=== PATIENT | female | born 1990 | race American Indian/Alaskan Native ===

== ENCOUNTER 2017-04-21 14:25 | Emergency (ER) | payer OTHER ==
[2017-04-21] MEDS ORDERED: ULTRAM PO ONE (17:16)
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
[2017-04-21 18:20] VITALS: BP 108/66
== END 2017-04-21 18:19 | disposition home or self-care (01) ==
LOC: ED 14:25
DX: M54.5 Low back pain (principal); R51 Headache; R07.89 Other chest pain; V49.49XA Driver injured in collision with other motor vehicles in traffic accident, initial encounter; Y93.9 Activity, unspecified; Y99.9 Unspecified external cause status; Y92.410 Unspecified street and highway as the place of occurrence of the external cause
CPT/HCPCS: 93005; 93010; 99282

== ENCOUNTER 2017-05-21 14:41 | Emergency (ER) | payer OTHER ==
[2017-05-21 14:49] VITALS: BP 129/85
--- NOTE | 2017-05-21 15:26 | Emergency Department Report ---
ED Abdominal Pain HPI - General Chief Complaint: Urogenital-Female Stated Complaint: ABD PAIN Time Seen by Provider: 05/21/17 15:12 Source: patient Mode of arrival: Ambulatory Limitations: No Limitations - History of Present Illness Initial Comments: Patient here complaining of lower pelvic pain for 2 days. She denies any dysuria or blood in her urine. She says she has some urgency and difficulty holding her urine sometimes. She said the pain is in her left and mid pelvic area 6 out of 10 and shooting and sharp. Denies any fever or chills. Last menstrual period was 05/15/2017 and she said it ended yesterday. Patient denies any vaginal bleeding or discharge. She is sexually active and she is not concerned about STD. Denies any pain with sex.Denies any fever or chills or nausea vomiting or diarrhea. MD Complaint: abdominal pain Onset/Timin -: days(s) Location: suprapubic (pelvic area) Radiation: none Migration to: no migration Severity: moderate Severity scale (0 -10): 6 Quality: sharp, other (shooting) Consistency: intermittent Improves With: nothing Worsens With: nothing Context: other (unknown) Associated Symptoms: denies: nausea, vomiting, diarrhea, fever, chills, constipation, dysuria, hematemesis, hematochezia, melena, hematuria, anorexia, syncope Treatments Prior to Arrival: other (none) - Related Data LMP Date: 05/15/17 Previous Rx's Medication Instructions Recorded Last Taken Type Naproxen [Naprosyn] 500 mg PO BID PRN #10 tablet 05/21/17 Unknown Rx Nitrofurantoin [place]/M-Cryst 100 mg PO Q12HR #14 capsule 05/21/17 Unknown Rx [Macrobid CAP] Allergies Allergy/AdvReac Type Severity Reaction Status Date / Time No Known Allergies Allergy Verified 05/21/17 14:43 ED Review of Systems ROS: Stated complaint: ABD PAIN Other details as noted in HPI Comment: All other systems reviewed and negative Constitutional: denies: chills, fever ENT: denies: throat pain Respiratory: no symptoms reported Cardiovascular: denies: chest pain, palpitations, edema, syncope Gastrointestinal: denies: abdominal pain, nausea, vomiting, diarrhea, constipation, hematemesis, melena, hematochezia Genitourinary: urgency, frequency. denies: dysuria, hematuria, discharge, abnormal menses, dyspareunia Musculoskeletal: denies: back pain, joint swelling, arthralgia, myalgia Skin: denies: rash Neurological: denies: headache, weakness, numbness, paresthesias, confusion, abnormal gait, vertigo ED Past Medical Hx - Past Medical History Previous Medical History?: No - Surgical History Past Surgical History?: Yes Hx Breast Surgery: Yes (BREAST AUGMENTATION) - Family History Family history: hypertension - Social History Smoking Status: Never Smoker Substance Use Type: Alcohol - Medications Home Medications: Home Medications Medication Instructions Recorded Confirmed Last Taken Type Naproxen [Naprosyn] 500 mg PO BID PRN #10 tablet 05/21/17 Unknown Rx Nitrofurantoin [place]/M-Cryst 100 mg PO Q12HR #14 capsule 05/21/17 Unknown Rx [Macrobid CAP] ED Physical Exam - General Limitations: No Limitations General appearance: alert, in no apparent distress - Head Head exam: Present: atraumatic, normocephalic, normal inspection - Eye Eye exam: Present: normal appearance, PERRL, EOMI. Absent: nystagmus, periorbital swelling, periorbital tenderness Pupils: Present: normal accommodation - ENT ENT exam: Present: normal exam, normal orophraynx, mucous membranes moist, TM's normal bilaterally, normal external ear exam - Neck Neck exam: Present: normal inspection, full ROM. Absent: tenderness, meningismus, lymphadenopathy - Respiratory Respiratory exam: Present: normal lung sounds bilaterally. Absent: respiratory distress, chest wall tenderness - Cardiovascular Cardiovascular Exam: Present: regular rate, normal rhythm - GI/Abdominal GI/Abdominal exam: Present: soft, normal bowel sounds. Absent: distended, tenderness, guarding, rebound, rigid - Extremities Exam Extremities exam: Present: normal inspection, full ROM, normal capillary refill. Absent: tenderness, pedal edema, joint swelling, calf tenderness - Back Exam Back exam: Present: normal inspection, full ROM. Absent: tenderness, CVA tenderness (R), CVA tenderness (L), muscle spasm, paraspinal tenderness, vertebral tenderness, rash noted - Neurological Exam Neurological exam: Present: alert, oriented X3, normal gait, reflexes normal. Absent: motor sensory deficit - Psychiatric Psychiatric exam: Present: normal affect, normal mood - Skin Skin exam: Present: warm, dry, intact, normal color. Absent: rash ED Course Vital Signs 05/21/17 14:45 Temperature 98.0 F Pulse Rate 87 Respiratory 16 Rate Blood Pressure 129/85 O2 Sat by Pulse 100 Oximetry - Reevaluation(s) Reevaluation #1: 05/21/17 15:37 Patient stable and awaiting the lab results and did not want any medication for pain. ED Medical Decision Making - Lab Data Lab Results 05/21/17 05/21/17 05/21/17 Range/Units 14:59 15:03 15:03 WBC 7.1 (4.5-11.0) K/mm3 RBC 4.38 (3.65-5.03) M/mm3 Hgb 10.9 (10.1-14.3) gm/dl Hct 34.5 (30.3-42.9) % MCV 79 (79-97) fl MCH 25 L (28-32) pg MCHC 32 (30-34) % RDW 17.0 H (13.2-15.2) % Plt Count 249 (140-440) K/mm3 Lymph % (Auto) 19.4 (13.4-35.0) % [place] % (Auto) 9.1 H (0.0-7.3) % Eos % (Auto) 0.5 (0.0-4.3) % Baso % (Auto) 0.5 (0.0-1.8) % Lymph # 1.4 (1.2-5.4) K/mm3 [place] # 0.6 (0.0-0.8) K/mm3 Eos # 0.0 (0.0-0.4) K/mm3 Baso # 0.0 (0.0-0.1) K/mm3 Seg Neutrophils % 70.5 H (40.0-70.0) % Seg Neutrophils # 5.0 (1.8-7.7) K/mm3 Sodium (137-145) mmol/L Potassium (3.6-5.0) mmol/L Chloride (98-107) mmol/L Carbon Dioxide (22-30) mmol/L Anion Gap mmol/L BUN (7-17) mg/dL Creatinine (0.7-1.2) mg/dL Estimated GFR ml/min BUN/Creatinine Ratio % Glucose (65-100) mg/dL Calcium (8.4-10.2) mg/dL HCG, Qual Negative (Negative) Urine Color Yellow (Yellow) Urine Turbidity Cloudy (Clear) Urine pH 6.0 (5.0-7.0) Ur Specific [place] 1.016 (1.003-1.030) Urine Protein 100 mg/dl (Negative) mg/dL Urine Glucose (UA) Neg (Negative) mg/dL Urine Ketones Neg (Negative) mg/dL Urine Blood Lg (Negative) Urine Nitrite Neg (Negative) Urine Bilirubin Neg (Negative) Urine Urobilinogen < 2.0 (<2.0) mg/dL Ur Leukocyte Esterase Lg (Negative) Urine WBC (Auto) > 182.0 H (0.0-6.0) /HPF Urine RBC (Auto) > 182.0 (0.0-6.0) /HPF Urine Bacteria (Auto) 2+ (Negative) /HPF Urine Mucus 3+ /HPF 05/21/17 Range/Units 15:03 WBC (4.5-11.0) K/mm3 RBC (3.65-5.03) M/mm3 Hgb (10.1-14.3) gm/dl Hct (30.3-42.9) % MCV (79-97) fl MCH (28-32) pg MCHC (30-34) % RDW (13.2-15.2) % Plt Count (140-440) K/mm3 Lymph % (Auto) (13.4-35.0) % [place] % (Auto) (0.0-7.3) % Eos % (Auto) (0.0-4.3) % Baso % (Auto) (0.0-1.8) % Lymph # (1.2-5.4) K/mm3 [place] # (0.0-0.8) K/mm3 Eos # (0.0-0.4) K/mm3 Baso # (0.0-0.1) K/mm3 Seg Neutrophils % (40.0-70.0) % Seg Neutrophils # (1.8-7.7) K/mm3 Sodium 141 (137-145) mmol/L Potassium 4.0 (3.6-5.0) mmol/L Chloride 104.2 (98-107) mmol/L Carbon Dioxide 25 (22-30) mmol/L Anion Gap 16 mmol/L BUN 8 (7-17) mg/dL Creatinine 0.8 (0.7-1.2) mg/dL Estimated GFR > 60 ml/min BUN/Creatinine Ratio 10.00 % Glucose 79 (65-100) mg/dL Calcium 9.3 (8.4-10.2) mg/dL HCG, Qual (Negative) Urine Color (Yellow) Urine Turbidity (Clear) Urine pH (5.0-7.0) Ur Specific [place] (1.003-1.030) Urine Protein (Negative) mg/dL Urine Glucose (UA) (Negative) mg/dL Urine Ketones (Negative) mg/dL Urine Blood (Negative) Urine Nitrite (Negative) Urine Bilirubin (Negative) Urine Urobilinogen (<2.0) mg/dL Ur Leukocyte Esterase (Negative) Urine WBC (Auto) (0.0-6.0) /HPF Urine RBC (Auto) (0.0-6.0) /HPF Urine Bacteria (Auto) (Negative) /HPF Urine Mucus /HPF Urine culture pending PT has large amount of blood in her urine because she is finishing her menses today - Medical Decision Making ED course: Patient here complaining of urinary urgency and difficult to hold her urine. She has no concern for STD, no nausea vomiting or diarrhea. No fever. Denies urinary burning. Urinalysis shows she has urinary tract infection with large amount of blood which patient is finishing up on her menses today. test is negative. Urine culture sent and pending. Urine result explained to patient in detail. She is able tolerate oral liquids without nausea or vomiting. Patient received Rocephin 1 g IM and emergency room for urinary tract infection. I discussed diagnosis and treatment plan with her and she voiced understanding. Discharge home with prescription for Macrobid and to follow-up with her primary care physician in 3-5 days. Critical care attestation.: If time is entered above; I have spent that time in minutes in the direct care of this critically ill patient, excluding procedure time. ED Disposition Clinical Impression: Acute cystitis with hematuria, Pelvic pain Disposition: TO HOME OR SELFCARE Is pt being admited?: No Does the pt Need Aspirin: No Condition: Stable Instructions: Urinary Tract Infection in Women (ED), Abdominal Pain (ED) Additional Instructions: Please increase her fluid intake to 2-3 L of liquid per day. Do not hold urine when he gets hurts to urinate Take antibiotic as prescribed. If you develop, fever, nausea or vomiting and increase in pelvic pain please return to emergency room [facility] Prescriptions: Naproxen [Naprosyn] 500 mg PO BID PRN #10 tablet PRN Reason: Pain Nitrofurantoin [place]/M-Cryst [Macrobid CAP] 100 mg PO Q12HR #14 capsule Referrals: PRIMARY CARE, [Primary Care Provider] - 3-5 Days [facility] [Outside] - 3-5 Days Forms: Work/School Release Form(ED)
[2017-05-21 15:32] LABS: Bacteria,Urine 2+ /HPF (Negative); Bilirubin,Urine NEG (Negative); Blood,Urine LG (Negative); Ketones,Urine NEG (Negative); Leukocyte Esterase,Urine LG (Negative); Mucus,Urine 3+ /HPF; Nitrite,Urine NEG (Negative); Urobilinogen,Urine < 2.0 mg/dL (<2.0)
[2017-05-21 15:33] LABS: Basophils % (Auto) 0.5 % (0.0-1.8); Eosinophils % (Auto) 0.5 % (0.0-4.3); Hematocrit 34.5 % (30.3-42.9); Hemoglobin 10.9 gm/dl (10.1-14.3); Mean Corpuscular HGB Conc 32 % (30-34); Mean Corpuscular Volume 79 fl (79-97); Platelet Count 249 K/mm3 (140-440); Red Blood Count 4.38 M/mm3 (3.65-5.03); White Blood Count 7.1 K/mm3 (4.5-11.0)
[2017-05-21 15:34] LABS: RBC,Urine > 182.0 /HPF (0.0-6.0); WBC,Urine > 182.0 /HPF (0.0-6.0)
[2017-05-21 15:35] LABS: Mean Corpuscular Hemoglobin 25 pg (28-32)
[2017-05-21 15:38] LABS: Anion Gap 16 mmol/L; Blood Urea Nitrogen 8 mg/dL (7-17); Calcium 9.3 mg/dL (8.4-10.2); Carbon Dioxide 25 mmol/L (22-30); Chloride 104.2 mmol/L (98-107); Glucose 79 mg/dL (65-100); Sodium 141 mmol/L (137-145)
[2017-05-21] MEDS ORDERED: ROCEPHIN IM STA (15:44)
[2017-05-21] MEDS ORDERED: XYLOCAINE 1% MPF 5 mL INFILTRATI ONE (15:44)
== END 2017-05-21 16:33 | disposition home or self-care (01) ==
LOC: ED 14:41
DX: N30.01 Acute cystitis with hematuria (principal); R10.2 Pelvic and perineal pain
CPT/HCPCS: 36415; 80048; 81001; 84703; 85025; 87086; 96372; 99283; J0696

== ENCOUNTER 2017-09-06 12:56 | Emergency (ER) | payer MEDICAID ==
[2017-09-06 14:14] LABS: Basophils % (Auto) 0.4 % (0.0-1.8); Eosinophils % (Auto) 0.2 % (0.0-4.3); Hemoglobin 12.1 gm/dl (10.1-14.3); Mean Corpuscular HGB Conc 34 % (30-34); Mean Corpuscular Hemoglobin 27 pg (28-32); Mean Corpuscular Volume 78 fl (79-97); Platelet Count 175 K/mm3 (140-440); Red Blood Count 4.59 M/mm3 (3.65-5.03); Red Cell Distribution Width 18.1 % (13.2-15.2); White Blood Count 9.6 K/mm3 (4.5-11.0)
[2017-09-06 14:31] LABS: Anion Gap 15 mmol/L; BUN/Creatinine Ratio 18; Blood Urea Nitrogen 11 mg/dL (7-17); Calcium 10.5 mg/dL (8.4-10.2); Carbon Dioxide 24 mmol/L (22-30); Chloride 98.1 mmol/L (98-107); Glucose 134 mg/dL (65-100); Potassium 4.4 mmol/L (3.6-5.0); Sodium 133 mmol/L (137-145)
[2017-09-06 14:46] LABS: Bacteria,Urine 1+ /HPF (Negative); Bilirubin,Urine NEG (Negative); Blood,Urine NEG (Negative); Ketones,Urine TR mg/dL (Negative); Leukocyte Esterase,Urine NEG (Negative); Mucus,Urine 3+ /HPF; Nitrite,Urine NEG (Negative); Urobilinogen,Urine < 2.0 mg/dL (<2.0)
[2017-09-06] MEDS ORDERED: NACL 0.9% 1000 ML 1,000 ML IV ONE (20:11)
[2017-09-06] MEDS ORDERED: REGLAN IV ONE (20:18)
[2017-09-06] MEDS ORDERED: TYLENOL PO ONE (20:19)
--- NOTE | 2017-09-06 22:26 | Ultrasound Report ---
FINAL REPORT PROCEDURE: US OB TRANSVAGINAL TECHNIQUE: Real-time transvaginal sonography of the uterus, placenta, amniotic fluid, adnexa, and fetus was performed with image documentation. Measurements were obtained to determine age/size. M-mode Doppler was used to document heartbeat. CPT 67043 HISTORY: abd pain, 9 weeks preg COMPARISON: No prior studies are available for comparison. FINDINGS: CRL: 20mm, which corresponds to a gestational age of: 8weeks, 4 days. Yolk Sac: Normal. Embryonic Cardiac Activity: 172 beats per minute Gestational Sac: Normal. Right Ovary: Normal. Left Ovary: Normal. Estimated delivery date: 04/14/2018 Comment: Complete anatomic survey at 18-20 weeks suggested. IMPRESSION: 1. Single living intrauterine gestation at approximately 8 weeks and 4 days 2. EDC by US 04/14/2018.
--- NOTE | 2017-09-06 22:26 | Ultrasound Report ---
FINAL REPORT PROCEDURE: US OB \T\lt; = 14 WEEKS FETUS TECHNIQUE: Real-time transabdominal sonography of the uterus, placenta, amniotic fluid, adnexa, and fetus was performed with image documentation. Measurements were obtained to determine age/size. M-mode Doppler was used to document heartbeat. CPT 20661 HISTORY: abd pain, back pain, 9 weeks preg COMPARISON: No prior studies are available for comparison. FINDINGS: CRL: 20 mm, which corresponds to a gestational age of: 8 weeks, 4 days. Yolk Sac: Normal. Embryonic Cardiac Activity: 172 beats per minute Gestational Sac: Normal. Amniotic fluid: Normal. Cervix: Normal. Right Ovary: Normal. Left Ovary: Normal. Estimated delivery date: 04/14/2018 Uterus and adnexa: Normal. IMPRESSION: Single live intrauterine gestation at approximately 8 weeks and 4 days. EDC by US 04/14/2018
--- NOTE | 2017-09-06 23:02 | Emergency Department Report ---
ED N/V/D HPI - General Chief complaint: Nausea/Vomiting/Diarrhea Stated complaint: PREG,VOMITING,BACK PAIN Source: patient Mode of arrival: Ambulatory Limitations: No Limitations - History of Present Illness Initial comments: 27 year old female presents to ED with , abd pain, back pain and nausea x2-3 days. patient is stable, neurologically intact and in no acute distress. patient has no active vomiting during ED visit. patient states LMP was July 05. MD complaint: vomiting, abdominal pain -: Gradual Associated Abdominal Pain: Yes Location: diffuse Radiation: none Severity: mild Quality: cramping Consistency: intermittent Improves with: none Worsens with: none Associated Symptoms: nausea/vomiting - Related Data Previous Rx's Medication Instructions Recorded Last Taken Type Naproxen [Naprosyn] 500 mg PO BID PRN #10 tablet 05/21/17 Unknown Rx Nitrofurantoin [place]/M-Cryst 100 mg PO Q12HR #14 capsule 05/21/17 Unknown Rx [Macrobid CAP] Metoclopramide HCl [Reglan TAB] 5 mg PO TIDAC #15 tablet 09/06/17 Unknown Rx Allergies Allergy/AdvReac Type Severity Reaction Status Date / Time No Known Allergies Allergy Verified 05/21/17 14:43 ED Review of Systems ROS: Stated complaint: PREG,VOMITING,BACK PAIN Other details as noted in HPI Constitutional: denies: chills, fever Eyes: denies: eye pain, eye discharge, vision change ENT: denies: ear pain, throat pain Respiratory: denies: cough, shortness of breath, wheezing Cardiovascular: denies: chest pain, palpitations Endocrine: no symptoms reported Gastrointestinal: abdominal pain, nausea, vomiting. denies: diarrhea Genitourinary: denies: urgency, dysuria, discharge Musculoskeletal: back pain. denies: joint swelling, arthralgia Skin: denies: rash, lesions Neurological: denies: headache, weakness, numbness, paresthesias, confusion, abnormal gait, vertigo Psychiatric: denies: anxiety, depression Hematological/Lymphatic: denies: easy bleeding, easy bruising ED Past Medical Hx - Past Medical History Previous Medical History?: No - Surgical History Hx Breast Surgery: Yes (BREAST AUGMENTATION) - Social History Smoking Status: Never Smoker Substance Use Type: None - Medications Home Medications: Home Medications Medication Instructions Recorded Confirmed Last Taken Type Naproxen [Naprosyn] 500 mg PO BID PRN #10 tablet 05/21/17 Unknown Rx Nitrofurantoin [place]/M-Cryst 100 mg PO Q12HR #14 capsule 05/21/17 Unknown Rx [Macrobid CAP] Metoclopramide HCl [Reglan TAB] 5 mg PO TIDAC #15 tablet 09/06/17 Unknown Rx ED Physical Exam - General Limitations: No Limitations General appearance: alert, in no apparent distress - Head Head exam: Present: atraumatic, normocephalic - Eye Eye exam: Present: normal appearance - ENT ENT exam: Present: mucous membranes moist - Neck Neck exam: Present: normal inspection - Respiratory Respiratory exam: Present: normal lung sounds bilaterally. Absent: respiratory distress - Cardiovascular Cardiovascular Exam: Present: regular rate, normal rhythm. Absent: systolic murmur, diastolic murmur, rubs, gallop - GI/Abdominal GI/Abdominal exam: Present: soft, normal bowel sounds. Absent: distended, tenderness, guarding, rebound - Extremities Exam Extremities exam: Present: normal inspection - Back Exam Back exam: Present: normal inspection, full ROM. Absent: tenderness - Neurological Exam Neurological exam: Present: alert, oriented X3, normal gait - Psychiatric Psychiatric exam: Present: normal affect, normal mood - Skin Skin exam: Present: warm, dry, intact, normal color. Absent: rash ED Course Vital Signs 09/06/17 09/06/17 13:46 22:49 Temperature 98.9 F 98.1 F Pulse Rate 76 71 Respiratory 18 16 Rate Blood Pressure 106/68 Blood Pressure 106/68 97/45 [Left] O2 Sat by Pulse 100 100 Oximetry ED Medical Decision Making - Lab Data Result diagrams: 09/06/17 14:01 09/06/17 14:01 Labs 09/06/17 09/06/17 09/06/17 14:00 14:01 14:01 WBC 9.6 RBC 4.59 Hgb 12.1 Hct 36.0 MCV 78 L MCH 27 L MCHC 34 RDW 18.1 H Plt Count 175 Lymph % (Auto) 13.3 L [place] % (Auto) 6.9 Eos % (Auto) 0.2 Baso % (Auto) 0.4 Lymph # 1.3 [place] # 0.7 Eos # 0.0 Baso # 0.0 Seg Neutrophils % 79.2 H Seg Neutrophils # 7.6 Sodium 133 L Potassium 4.4 Chloride 98.1 Carbon Dioxide 24 Anion Gap 15 BUN 11 Creatinine 0.6 L Estimated GFR > 60 BUN/Creatinine Ratio 18 Glucose 134 H Calcium 10.5 H Lipase HCG, Qual HCG, Quant Urine Color Yellow Urine Turbidity Clear Urine pH 5.0 Ur Specific Harmony 1.030 Urine Protein 30 mg/dl Urine Glucose (UA) 50 Urine Ketones Tr Urine Blood Neg Urine Nitrite Neg Urine Bilirubin Neg Urine Urobilinogen < 2.0 Ur Leukocyte Esterase Neg Urine WBC (Auto) 1.0 Urine RBC (Auto) 3.0 U Epithel Cells (Auto) 2.0 Urine Bacteria (Auto) 1+ Urine Mucus 3+ Urine HCG, Qual Positive A 09/06/17 09/06/17 09/06/17 20:19 20:19 20:19 WBC RBC Hgb Hct MCV MCH MCHC RDW Plt Count Lymph % (Auto) [place] % (Auto) Eos % (Auto) Baso % (Auto) Lymph # [place] # Eos # Baso # Seg Neutrophils % Seg Neutrophils # Sodium Potassium Chloride Carbon Dioxide Anion Gap BUN Creatinine Estimated GFR BUN/Creatinine Ratio Glucose Calcium Lipase 20 HCG, Qual Positive HCG, Quant [id number] H Urine Color Urine Turbidity Urine pH Ur Specific Harmony Urine Protein Urine Glucose (UA) Urine Ketones Urine Blood Urine Nitrite Urine Bilirubin Urine Urobilinogen Ur Leukocyte Esterase Urine WBC (Auto) Urine RBC (Auto) U Epithel Cells (Auto) Urine Bacteria (Auto) Urine Mucus Urine HCG, Qual - Radiology Data Radiology results: report reviewed U/S transvaginal/OB<14 weeks/FHT Single live intrauterine gestation at approximately 8 weeks and 4 days. EDC by 04/14/2018 FHT: 172 bpm - Medical Decision Making 27 year old female presents to ED with , abd pain, back pain, nausea. patient has had 1L IV saline bolus. patient has had no vomiting during ED visit. patient has single living IUP per ultrasound. patient is stable, neurologically intact and in no acute distress. patient has no tenderness to abdomen on palpation during exam. Critical care attestation.: If time is entered above; I have spent that time in minutes in the direct care of this critically ill patient, excluding procedure time. ED Disposition Clinical Impression: Back pain during , Nausea and vomiting during prior to 22 weeks gestation Disposition: TO HOME OR SELFCARE Is pt being admited?: No Does the pt Need Aspirin: No Condition: Stable Instructions: (ED) Additional Instructions: Please return to ED in 48 hours for HCG recheck. please return immediately if pain worsens or vaginal bleeding begins. Prescriptions: Metoclopramide HCl [Reglan TAB] 5 mg PO TIDAC #15 tablet Referrals: DAYRON STAHL MD [Staff Physician] - 2-3 Days Forms: Work/School Release Form(ED)
[2017-09-06 23:22] VITALS: BP 97/45
== END 2017-09-07 | disposition home or self-care (01) ==
LOC: ED 12:56
DX: O26.892 Other specified pregnancy related conditions, second trimester (principal); O21.0 Mild hyperemesis gravidarum; M54.5 Low back pain; Z3A.22 22 weeks gestation of pregnancy
CPT/HCPCS: 36415; 76801; 76817; 80048; 81001; 81025; 83690; 84702; 84703; 85025; 87210; 87591; 96361; 96374; 99284; J2765; J7030

== ENCOUNTER 2017-09-09 14:00 | Emergency (ER) | payer MEDICAID ==
[2017-09-09 15:46] VITALS: BP 114/75
--- NOTE | 2017-09-09 17:37 | Emergency Department Report ---
ED Recheck HPI - General Chief Complaint: Medical Clearance Stated Complaint: RE CHECK HCG, VAGINAL BLEEDING Time Seen by Provider: 09/09/17 17:55 Source: patient Mode of arrival: Ambulatory Limitations: No Limitations - History of Present Illness Initial Comments: Patient here reported that she was seen here in 09/06 2017. She states she was here for nausea and vomiting and they did a test on her and also ultrasound and her test was positive and her ultrasound showed that she is 8 weeks and 6 days . Has any abdominal or back pain today. Nausea or vomiting. Then the vaginal bleeding or discharge. Pain is 0 out of 10 and she states that she just wants to find out what her regnancy blood work is at and she wants to go home. Complaint: other (return for lab tests ) Initial Visit For: other (Repeat hormone tests done) Returns Today for: CBOAL Symptoms Since Prior Visit: no new symptoms Context: planned re-check Associated Symptoms: none Treatments Prior to Arrival: other (none) - Related Data Previous Rx's Medication Instructions Recorded Last Taken Type Naproxen [Naprosyn] 500 mg PO BID PRN #10 tablet 05/21/17 Unknown Rx Nitrofurantoin [place]/M-Cryst 100 mg PO Q12HR #14 capsule 05/21/17 Unknown Rx [Macrobid CAP] Metoclopramide HCl [Reglan TAB] 5 mg PO TIDAC #15 tablet 09/06/17 Unknown Rx Vit No.130/Iron/Folic 1 each PO QAM #30 tablet 09/09/17 Unknown Rx [ Tablet] Allergies Allergy/AdvReac Type Severity Reaction Status Date / Time No Known Allergies Allergy Verified 05/21/17 14:43 ED Review of Systems ROS: Stated complaint: RE CHECK HCG, VAGINAL BLEEDING Other details as noted in HPI Comment: All other systems reviewed and negative Constitutional: no symptoms reported ENT: denies: ear pain, throat pain, hearing loss, epistaxis, congestion Respiratory: no symptoms reported Cardiovascular: denies: chest pain, palpitations, dyspnea on exertion, edema, syncope, paroxysmal nocturnal dyspnea Gastrointestinal: denies: abdominal pain, nausea, vomiting, diarrhea, constipation Genitourinary: abnormal menses. denies: urgency, dysuria, frequency, hematuria , discharge Musculoskeletal: denies: back pain, arthralgia, myalgia Skin: denies: rash Neurological: denies: headache, weakness, numbness, paresthesias, confusion, abnormal gait, vertigo ED Past Medical Hx - Past Medical History Previous Medical History?: No - Surgical History Past Surgical History?: Yes Hx Breast Surgery: Yes (BREAST AUGMENTATION) - Family History Family history: no significant - Social History Smoking Status: Never Smoker Substance Use Type: Prescribed - Medications Home Medications: Home Medications Medication Instructions Recorded Confirmed Last Taken Type Naproxen [Naprosyn] 500 mg PO BID PRN #10 tablet 05/21/17 Unknown Rx Nitrofurantoin [place]/M-Cryst 100 mg PO Q12HR #14 capsule 05/21/17 Unknown Rx [Macrobid CAP] Metoclopramide HCl [Reglan TAB] 5 mg PO TIDAC #15 tablet 09/06/17 Unknown Rx Vit No.130/Iron/Folic 1 each PO QAM #30 tablet 09/09/17 Unknown Rx [ Tablet] ED Physical Exam - General Limitations: No Limitations General appearance: alert, in no apparent distress - Head Head exam: Present: atraumatic, normocephalic, normal inspection - Eye Eye exam: Present: normal appearance, PERRL, EOMI Pupils: Present: normal accommodation - ENT ENT exam: Present: normal exam, normal orophraynx, mucous membranes moist - Neck Neck exam: Present: normal inspection, full ROM. Absent: tenderness, meningismus, lymphadenopathy - Respiratory Respiratory exam: Present: normal lung sounds bilaterally. Absent: respiratory distress, wheezes, rales, rhonchi, stridor, chest wall tenderness, accessory muscle use - Cardiovascular Cardiovascular Exam: Present: regular rate, normal rhythm, normal heart sounds. Absent: systolic murmur, diastolic murmur - GI/Abdominal GI/Abdominal exam: Present: soft, normal bowel sounds. Absent: distended, tenderness, guarding, rebound, rigid, organomegaly, mass, bruit, pulsatile mass - Extremities Exam Extremities exam: Present: normal inspection, full ROM, normal capillary refill , other (no clubbing, cyanosis or edema. 2+ pulses. Neurovascular compromise) . Absent: tenderness, pedal edema, joint swelling, calf tenderness - Back Exam Back exam: Present: normal inspection, full ROM. Absent: tenderness, CVA tenderness (R), CVA tenderness (L), muscle spasm, paraspinal tenderness, vertebral tenderness, rash noted - Neurological Exam Neurological exam: Present: alert, oriented X3, normal gait, reflexes normal. Absent: motor sensory deficit - Psychiatric Psychiatric exam: Present: normal affect, normal mood - Skin Skin exam: Present: warm, dry, intact, normal color. Absent: rash ED Course Vital Signs 09/09/17 15:39 Temperature 98.2 F Pulse Rate 70 Respiratory 16 Rate Blood Pressure 114/75 O2 Sat by Pulse 100 Oximetry - Reevaluation(s) Reevaluation #1: 09/09/17 18:22 Repeat hormone was at [id number] on 09/06/2017, it is currently at [id number]. Patient is asymptomatic and she is not having any problems with nausea , vomiting, vaginal bleeding in or discharge, back pain or urinary burning frequency or urgency. Last ultrasound showed that patient had single live intrauterine gestation at 8 weeks and 4 days. heartbeat was at 172 bpm/ min. Gonorrhea and chlamydia test is negative and wet prep was negative for any infection. ED Recheck MDM - Medical Decision Making D course: She was there on 09/06 2017 for complaint of back pain and nausea and vomiting. She was found to be . Ultrasound revealed patient at 8 weeks and 4 days and her due date is that 04/14/2018. Ultrasound also revealed patient has intrauterine gestation and cardiac activity was at 172 bpm. serum hCG quantitative was that [id number] on 09/06 2017 and today it is at [id number]. Patient with stable serum hCG that is increased then and she is not having any related problems today. I discussed with patient that she will need to start taking vitamin and to follow-up with [facility] for care. He is aware that her hormone level is normal. Patient voiced understanding of need to follow-up for care and she was discharged home with prescription for vitamin. Critical care attestation.: If time is entered above; I have spent that time in minutes in the direct care of this critically ill patient, excluding procedure time. ED Disposition Clinical Impression: Qualifiers: Weeks of gestation: 9 weeks Qualified Code(s): Z3A.09 - 9 weeks gestation of Disposition: DC-01 TO HOME OR SELFCARE Is pt being admited?: No Does the pt Need Aspirin: No Condition: Stable Instructions: (ED), Vitamins (By mouth) Additional Instructions: He is follow-up with [facility] for care. Call and Monday and let the clinic know that you're seen in the emergency room and had ultrasound done and you need to set up an appointment to see [facility] for care Informed hormone is within normal limits increase your fluid intake If you develop abdominal pain, back pain, vaginal bleeding or discharge please return to the emergency room [facility] otherwise follow up with [facility] as recommended Prescriptions: Vit No.130/Iron/Folic [ Tablet] 1 each PO QAM #30 tablet Referrals: [facility] [Outside] - 2-3 Days DAYRON STAHL MD [Staff Physician] - 2-3 Days Forms: Work/School Release Form(ED)
== END 2017-09-09 18:41 | disposition home or self-care (01) ==
LOC: ED 14:00
DX: O46.91 Antepartum hemorrhage, unspecified, first trimester (principal); Z3A.08 8 weeks gestation of pregnancy
CPT/HCPCS: 36415; 84702; 99283